=== PATIENT | male | born 1980 | race African-American/Black ===

== ENCOUNTER 2016-11-02 10:02 | Emergency (ER) | payer MEDICAID ==
[~2016-11-02] VITALS: Ht 172.7 cm; Wt 69.0 kg
[2016-11-02] MEDS ORDERED: KETOROLAC 60MG/2ML VIAL IM ONE (15:30)
[2016-11-02 15:57] VITALS: BP 161/107
== END 2016-11-02 16:00 | disposition home or self-care (01) ==
LOC: ER 14:20
DX: S20.219A Contusion of unspecified front wall of thorax, initial encounter (principal); V49.59XA Passenger injured in collision with other motor vehicles in traffic accident, initial encounter; Y93.89 Activity, other specified; Y92.410 Unspecified street and highway as the place of occurrence of the external cause
CPT/HCPCS: 96372; 99283; J1885; Z7610